=== PATIENT | female | born 1975 | race Two or more races ===

== ENCOUNTER 2019-04-18 16:12 | Emergency (ER) | payer OTHER ==
[~2019-04-18] VITALS: Ht 154.9 cm; Wt 66.2 kg
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
[2019-04-18] MEDS ORDERED: KETOROLAC TROMETHAMINE INJ 30 MG/ML VIAL ONE (17:23)
[2019-04-18] MEDS ORDERED: DIAZEPAM 5 MG TABLET ONE (17:24)
[2019-04-18] MEDS ORDERED: TDAP [DIPH/PERTUSSIS/TET] 0.5 ML VIAL IM ONE (17:24)
[2019-04-18] MEDS: DIAZEPAM 5 MG TABLET PO ONE (17:46)
[2019-04-18] MEDS: KETOROLAC TROMETHAMINE INJ 60 MG/2 ML VIAL IM ONE (17:49)
[2019-04-18] MEDS: TDAP [DIPH/PERTUSSIS/TET] 0.5 ML VIAL IM ONE (17:49)
[2019-04-18 19:39] VITALS: BP 120/78
--- NOTE | 2019-04-18 19:39 | NUR ---
Patient discharged to home in stable condition. Written and verbal after care instructions given. Patient verbalizes understanding of instruction.
== END 2019-04-18 19:40 | disposition home or self-care (01) ==
LOC: ER 16:13
DX: S16.1XXA Strain of muscle, fascia and tendon at neck level, initial encounter (principal); S46.812A Strain of other muscles, fascia and tendons at shoulder and upper arm level, left arm, initial encounter; S20.212A Contusion of left front wall of thorax, initial encounter; S40.211A Abrasion of right shoulder, initial encounter; S70.212A Abrasion, left hip, initial encounter; S60.411A Abrasion of left index finger, initial encounter; M25.552 Pain in left hip; M25.551 Pain in right hip; Z23 Encounter for immunization; Z88.0 Allergy status to penicillin; Z91.040 Latex allergy status; V49.59XA Passenger injured in collision with other motor vehicles in traffic accident, initial encounter; Y93.89 Activity, other specified; Y92.488 Other paved roadways as the place of occurrence of the external cause; Y99.8 Other external cause status
CPT/HCPCS: 71045; 72125; 72170; 73030; 84703; 90471; 90715; 96372; 99284; J1885; L0172